=== PATIENT | female | born 1970 | race Caucasian/White ===

== ENCOUNTER 2019-01-02 02:15 | Emergency (ER) | payer OTHER ==
--- NOTE | 2019-01-02 02:57 | EDPHY ---
H & P Stated Complaint: back pain x 2 days Time Seen by Provider: 01/02/19 02:29 HPI/ROS: Chief Complaint: Low back pain HPI: 48-year-old woman woke 2 days ago with bilateral lower back pain. Does not have a history of trauma or recent injuries. No prior back pain in the past. No numbness or weakness. Has had some mild constipation. No urinary retention or incontinence. No fevers or chills. No nausea or vomiting. She has been taking ibuprofen. She went to urgent care and was given a skeletal muscle relaxer. She has been mostly resting her back for the last 2 days with no improvement. This morning she had worsening pain was unable to sleep. Pain is about a 7/10. Worse with walking around. Does not shoot down the back of her leg. No fevers or chills. Pain is on both sides of her lower back. No midline pain. ROS: 10 systems were reviewed and were negative except those elements noted in the HPI. PMH: Hypothyroidism, asthma Social History: No smoking, no alcohol, no recreational drug use Family History: non-contributory Physical Exam: Gen: Awake, Alert, No Distress HEENT: Nose: no rhinorrhea Eyes: PERRLA, EOMI Mouth: Moist mucosa Neck: Supple, no JVD Chest: nontender, lungs clear to auscultation Heart: S1, S2 normal, no murmur Abd: Soft, non-tender, no guarding Back: no CVA tenderness, no midline tenderness, bilateral lumbar paraspinal muscle spasm with tenderness reproducing presenting complaint. No erythema. Ext: no edema, non-tender Skin: no rash Neuro: CN II-XII intact, Sensation grossly intact, Strength 5/5 in bilateral upper and lower extremities - Personal History LMP (Females 10-55): 22-28 Days Ago Current Tetanus Diphtheria and Acellular Pertussis (TDAP): Unsure - Medical/Surgical History Hx Asthma: Yes Hx Chronic Respiratory Disease: No Hx Diabetes: No Hx Cardiac Disease: No Hx Renal Disease: No Hx Cirrhosis: No Hx Alcoholism: No Hx HIV/AIDS: No Hx Splenectomy or Spleen Trauma: No Other PMH: hypothyroidism - Social History Smoking Status: Former smoker Constitutional: Initial Vital Signs Temperature (C) 36.8 C 01/02/19 02:21 Heart Rate 98 01/02/19 02:21 Respiratory Rate 20 01/02/19 02:21 Blood Pressure 147/102 H 01/02/19 02:21 O2 Sat (%) 95 01/02/19 02:21 O2 Delivery Mode Room Air Allergies/Adverse Reactions: codeine Allergy (Verified 01/02/19 02:19) Home Medications: Medication Instructions Recorded Synthroid 01/02/19 Medical Decision Making Procedures: Procedure: Trigger-point injection, Indication: Skin was prepped with chlorhexidine swab. A total of 10 mL of lidocaine mixed with bupivacaine was infiltrated into bilateral lumbar paraspinal muscles site. The patient experienced relief following the procedure. There are no complications. It was performed by myself. ED Course/Re-evaluation: Patient is improved after trigger-point injections. She does have some pain with movement but no pain at rest. Will send her home with a hydrocodone prepack and ondansetron. Customary back pain instructions. She has not have any red flags for acute neurosurgical emergency. No neurologic symptoms. No risk factors for epidural abscess. Will discharge with follow-up with primary care physician. - Data Points Medications Given: Discontinued Medications Acetaminophen (Tylenol) 1,000 mg PO EDNOW ONE Stop: 01/02/19 03:37 Last Admin: 01/02/19 03:43 Dose: 1,000 mg Departure - Departure Disposition: Home, Routine, Self-Care Clinical Impression: Back pain Condition: Good Instructions: Lower Back Exercises (ED), Low Back Strain (ED) Additional Instructions: Take ibuprofen, 600 mg, 3 times a day. You may also take acetaminophen, 1000 mg every 6 hours. You may replace a Lidoderm patch every 24 hr, these are available over-the- counter. Apply ice for 15 minutes of every hour while awake. Make sure to remain active. Did do not lay in bed or sit in a chair for long periods. Avoid heavy lifting or bending at work until cleared by your physician. Please see the attached back exercise instructions. Follow up with your primary care physician in 2-3 days for further evaluation. Referrals: Sharon Portillo PA [Primary Care Provider] - As per Instructions
[2019-01-02] MEDS ORDERED: ACETAMINOPHEN 500 MG TAB PO ONE (03:36)
[2019-01-02] MEDS ORDERED: HYDROCOD/APAP 5/325 PREPACK#6 BTL TAKEHOME ONE (04:13)
[2019-01-02] MEDS ORDERED: ONDANSETRON 4MG PREPACK#2 BTL TAKEHOME ONE (04:13)
[2019-01-02 04:36] VITALS: BP 154/79
== END 2019-01-02 04:36 | disposition home or self-care (01) ==
PROC: 3E023GC Introduction of Other Therapeutic Substance into Muscle, Percutaneous Approach (ICD-10-PCS; principal; 2019-01-02)
DX: M54.9 Dorsalgia, unspecified (principal); E03.9 Hypothyroidism, unspecified; J45.909 Unspecified asthma, uncomplicated

== ENCOUNTER → 2019-02-07 | Outpatient (CLI) | payer OTHER | LOC: FIMAGING 14:58 ==